=== PATIENT | male | born 1980 | race Caucasian/White ===

== ENCOUNTER 2018-05-26 06:50 | Observation (INO) | payer SELFPAY ==
[~2018-05-26] VITALS: Ht 180.3 cm; Wt 95.0 kg
--- OUTSIDE RECORDS SUMMARY | 2018-05-26 06:55 | XMS REPORT ---
Author Author COCO PHAM [facility] Address [address] [place] [address] Care Team Providers Care Lead Die Molder Name Role Phone COCO PHAM Unavailable PROBLEMS Type Condition ICD9-CM Code [id number] Code Onset Dates Condition Status SNOMED Code Problem Allergic rhinitis J30.9 Active 63534620 Problem GERD (gastroesophageal reflux disease) K21.9 Active 051064913 Problem Benign essential HTN I10 Active 2190115 Problem Tobacco use disorder F17.200 Active 756033495 Problem Other chronic pain G89.29 Active 23256157 Problem Low back pain M54.5 Active 415312504 Problem Tobacco abuse Z72.0 Active 45179864 Problem Pain in right hip M25.551 Active 36647267 Problem Pain in left hip M25.552 Active 13714361 ALLERGIES No Information ENCOUNTERS Encounter Location Date Diagnosis [facility] [address] [id number] [place] [id number] Jan, Benign essential HTN I10 and GERD (gastroesophageal reflux disease ) K21.9 [facility] [address] [facility] [address] [id number] [place] [id number] Dec, Benign essential HTN I10 [facility] [address] [facility] [address] [id number] [place] [id number] Dec, [facility] [address] [id number] [address] Dec, [facility] [address] [facility] [address] [id number] [place] [address] Dec, Benign essential HTN I10 ; Palpitations R00.2 ; Bronchitis J40 ; Tobacco use Z72.0 and Tobacco use disorder F17.200 [facility] [address] [id number], [place] [address] Oct, [facility] [id number] [place] [address] Jul, Benign essential HTN I10 ; Tobacco abuse Z72.0 ; Screening cholesterol level Z13.220 and Gastroesophageal reflux disease without esophagitis K21.9 [facility] [address] [id number] [place] [address] Jun, Benign essential HTN I10 ; GERD (gastroesophageal reflux disease) K21.9 and Tobacco abuse Z72.0 [facility] [address] [place] [address] AVE [id number] [place] [address] Nov, [facility] [address] [place] [address] AVE [id number] [place] [id number] Oct, [facility] [address] [facility] [id number] [address] Oct, Pain in left hip M25.552 ; Pain in right hip M25.551 ; Low back pain M54.5 and Other chronic pain G89.29 [facility] [id number] [place] [address] Oct, [facility] [address] [place] [address] AVE [id number] [place] [address] Oct, Pain in left hip M25.552 ; Pain in right hip M25.551 ; Low back pain M54.5 and Other chronic pain G89.29 [facility] [address] [id number], [place] [address] Sep, Dental examination Z01.20 [facility] [id number] [place] [address] Sep, Sore throat J02.9 and Common cold J00 [facility] [id number] [place] [address] Jul, Neck muscle strain, initial encounter S16.1XXA [facility] [id number] [place] [address] Jun, Tobacco abuse Z72.0 ; Tobacco abuse counseling Z71.6 ; Screening cholesterol level Z13.220 ; Benign essential HTN I10 and Gastroesophageal reflux disease without esophagitis K21.9 [facility] [address] [place] [address] [id number] [place] [address] Jun, Tobacco abuse Z72.[address] [id number] [place] [id number] May, [address] [id number] [place] [address] February, Upper respiratory tract infection, unspecified type J06.9 and Post -nasal drip R09.[address] [id number] [place] [address] Jan, Benign essential HTN I10 ; GERD (gastroesophageal reflux disease) K21.9 ; Tobacco abuse Z72.0 ; Tobacco abuse counseling Z71.6 ; Nocturia R35.1 and Allergic rhinitis J30.9 [facility] [address] [place] [address] Jan, [id number] [place] [address] Jan, [id number] [place] [address] Oct, [id number] [place] [address] Oct, IMMUNIZATIONS No Known Immunizations SOCIAL HISTORY Never Assessed REASON FOR VISIT PLAN OF CARE VITAL SIGNS MEDICATIONS Unknown Medications RESULTS No Results PROCEDURES No Known procedures INSTRUCTIONS MEDICATIONS ADMINISTERED No Known Medications MEDICAL (GENERAL) HISTORY Type Description Date Medical History hypertension Medical History acid reflux Medical History Bilateral Hip xrays 10/2016- Normal Medical History Lumbar Spine Xray 10/2016- Normal
--- OUTSIDE RECORDS SUMMARY | 2018-05-26 06:55 | XMS REPORT ---
Author Author COCO HPAM [facility] Address [address] [place] [address] Care Team Providers Care Medicaid Service Coordinator Name Role Phone COCO PHAM Unavailable PROBLEMS Type Condition ICD9-CM Code ARM39-RQ Code Onset Dates Condition Status SNOMED Code Problem Allergic rhinitis J30.9 Active 65024950 Problem GERD (gastroesophageal reflux disease) K21.9 Active 899974503 Problem Benign essential HTN I10 Active 9108889 Problem Tobacco use disorder F17.200 Active 618476445 Problem Other chronic pain G89.29 Active 94852979 Problem Low back pain M54.5 Active 655132088 Problem Tobacco abuse Z72.0 Active 80705015 Problem Pain in right hip M25.551 Active 85218162 Problem Pain in left hip M25.552 Active 97979437 ALLERGIES No Known Allergies ENCOUNTERS Encounter Location Date Diagnosis [facility] [address] [facility] [address] [id number], [place] [id number] Jan, Benign essential HTN I10 and GERD (gastroesophageal reflux disease ) K21.9 [facility] [address] [address] [id number], [place] [id number] Dec, Benign essential HTN I10 [facility] [address] [address] [id number], [place] [id number] Dec, [facility] [address] [id number] [address] Dec, [facility] [address] [facility] [id number], [place] [address] Dec, Benign essential HTN I10 ; Palpitations R00.2 ; Bronchitis J40 ; Tobacco use Z72.0 and Tobacco use disorder F17.200 [facility] [address]00565100[place], [place] [address] Oct, [facility] [address] [id number], [place] [address] Jul, Benign essential HTN I10 ; Tobacco abuse Z72.0 ; Screening cholesterol level Z13.220 and Gastroesophageal reflux disease without esophagitis K21.9 [facility] [address] [facility] [id number], [place] [id number] Jun, Benign essential HTN I10 ; GERD (gastroesophageal reflux disease) K21.9 and Tobacco abuse Z72.0 [facility] [address] [id number], [place] [address] Nov, [facility] [id number], [place] [address]80[address] Oct, [facility] [address] [facility] [id number] [address] Oct, Pain in left hip M25.552 ; Pain in right hip M25.551 ; Low back pain M54.5 and Other chronic pain G89.29 [facility] [address] [id number], [place] [id number] Oct, [facility] [id number], [place] [address] Oct, Pain in left hip M25.552 ; Pain in right hip M25.551 ; Low back pain M54.5 and Other chronic pain G89.29 [facility] [address] [facility] [id number][place] [address] Sep, Dental examination Z01.20 [facility] [address] [id number], [place] [address] Sep, Sore throat J02.9 and Common cold J00 [facility] [address] [id number], [place] [id number] Jul, Neck muscle strain, initial encounter S16.1XXA [facility] [id number], [place] [address] Jun, Tobacco abuse Z72.0 ; Tobacco abuse counseling Z71.6 ; Screening cholesterol level Z13.220 ; Benign essential HTN I10 and Gastroesophageal reflux disease without esophagitis K21.9 [facility] [id number], [place] [address] Jun, Tobacco abuse Z72.[address] [id number], [place] [id number] May, [address] [id number], [place] [address] February, Upper respiratory tract infection, unspecified type J06.9 and Post -nasal drip R09.[address] [id number], [place] [address]57[address]72 Jan, Benign essential HTN I10 ; GERD (gastroesophageal reflux disease) K21.9 ; Tobacco abuse Z72.0 ; Tobacco abuse counseling Z71.6 ; Nocturia R35.1 and Allergic rhinitis J30.9 [facility] [address] [place] [address] Jan, [id number] [place] [address]- [address]856 Jan, [id number] [place] [address]- 5542 Oct, [id number] [place] [address]- 1185 Oct, IMMUNIZATIONS No Known Immunizations SOCIAL HISTORY Never Assessed REASON FOR VISIT blood pressure follow up-Aletha rowe PLAN OF CARE Activity Details Follow Up 6 Months Reason:BP/fasting labs VITAL SIGNS Height 71 in 2018-01-28 Weight 211.3 lbs 2018-01-28 Temperature 98.6 degrees Fahrenheit 2018-01-28 Heart Rate 86 bpm 2018-01-28 Respiratory Rate 18 2018-01-28 BMI 29.47 kg/m2 2018-01-28 Blood pressure systolic 110 mmHg 2018-01-28 Blood pressure diastolic 60 mmHg 2018-01-28 MEDICATIONS Medication Instructions Dosage Frequency Start Date End Date Duration Status Atenolol 25 MG Orally Once a day 1 tablet 24h Dec, Active ProAir HFA 108 (90 Base) MCG/ACT Inhalation every 6 hrs 2 puffs as needed 6h Dec, Not-Taking Omeprazole 20 mg Orally Once a day 1 capsule 24h Active Losartan Potassium 100 mg Orally Once a day 1 tablet 24h Active Terazosin HCl 2 MG Orally Once a day 1 capsule Once a day Orally 24h Active RESULTS No Results PROCEDURES No Known procedures INSTRUCTIONS MEDICATIONS ADMINISTERED No Known Medications MEDICAL (GENERAL) HISTORY Type Description Date Medical History hypertension Medical History acid reflux Medical History Bilateral Hip xrays 10/2016- Normal Medical History Lumbar Spine Xray 10/2016- Normal
--- OUTSIDE RECORDS SUMMARY | 2018-05-26 06:55 | XMS REPORT ---
Author Author COCO PHAM [facility] Address [address] [place] [address] Care Team Providers Care Deputy Brand Inspector Name Role Phone COCO PHAM Unavailable PROBLEMS Type Condition ICD9-CM Code HBZ71-XX Code Onset Dates Condition Status SNOMED Code Problem Allergic rhinitis J30.9 Active 97434935 Problem GERD (gastroesophageal reflux disease) K21.9 Active 649208817 Problem Benign essential HTN I10 Active 9998575 Problem Tobacco use disorder F17.200 Active 907426546 Problem Other chronic pain G89.29 Active 20520131 Problem Low back pain M54.5 Active 705015078 Problem Tobacco abuse Z72.0 Active 19979322 Problem Pain in right hip M25.551 Active 16271024 Problem Pain in left hip M25.552 Active 44216382 ALLERGIES No Information ENCOUNTERS Encounter Location Date Diagnosis [facility] [address] [id number][place] [id number] Jan, Benign essential HTN I10 and GERD (gastroesophageal reflux disease ) K21.9 [facility] [address] [facility] [address] [id number], [place] [id number] Dec, Benign essential HTN I10 [facility] [address] [facility] [address] [id number], [place] [id number] Dec, [facility] [address] [id number], [place] [address] Dec, [facility] [address] [facility] [address] [id number], [place] [id number] Dec, Benign essential HTN I10 ; Palpitations R00.2 ; Bronchitis J40 ; Tobacco use Z72.0 and Tobacco use disorder F17.200 [facility] [address] [id number] [address] Oct, [facility] [address] [facility] [id number], [place] [address] Jul, Benign essential HTN I10 ; Tobacco abuse Z72.0 ; Screening cholesterol level Z13.220 and Gastroesophageal reflux disease without esophagitis K21.9 [facility] [id number], [place] [address] Jun, Benign essential HTN I10 ; GERD (gastroesophageal reflux disease) K21.9 and Tobacco abuse Z72.0 [facility] [address] [place] [address] AVE [id number], [place] [id number] Nov, [facility] [address] [place] [address] AVE [id number], [place] [id number] Oct, [facility] [address] [facility] [id number] [address] Oct, Pain in left hip M25.552 ; Pain in right hip M25.551 ; Low back pain M54.5 and Other chronic pain G89.29 [facility] [id number], [place] [id number] Oct, [facility] [address] [place] [address] AVE [id number], [place] [id number] Oct, Pain in left hip M25.552 ; Pain in right hip M25.551 ; Low back pain M54.5 and Other chronic pain G89.29 [facility] [address] [id number], [place] [id number] Sep, Dental examination Z01.20 [facility] [id number], [place] [address]69[address] Sep, Sore throat J02.9 and Common cold J00 [facility] [id number], [place] [address] Jul, Neck muscle strain, initial encounter S16.1XXA [facility] [id number], [place] [id number] Jun, Tobacco abuse Z72.0 ; Tobacco abuse counseling Z71.6 ; Screening cholesterol level Z13.220 ; Benign essential HTN I10 and Gastroesophageal reflux disease without esophagitis K21.9 [facility] [address] [place] [address] [id number], [place] [address] Jun, Tobacco abuse Z72.[address] [id number], [place] [id number] May, [address] [id number], [place] 358[address]13[address] February, Upper respiratory tract infection, unspecified type J06.9 and Post -nasal drip R09.[address] [id number], [place] [address]43 Jan, Benign essential HTN I10 ; GERD (gastroesophageal reflux disease) K21.9 ; Tobacco abuse Z72.0 ; Tobacco abuse counseling Z71.6 ; Nocturia R35.1 and Allergic rhinitis J30.9 [facility] [address] [place] [address]- [address] Jan, [id number] [place] [address] Jan, [facility] [id number] [place] [address]84- 4097 Oct, [id number] [place] [address] Oct, IMMUNIZATIONS No Known Immunizations SOCIAL HISTORY Never Assessed REASON FOR VISIT Blood pressure check PLAN OF CARE VITAL SIGNS Height 71 in 2018-01-11 Blood pressure systolic 130 mmHg 2018-01-11 Blood pressure diastolic 82 mmHg 2018-01-11 MEDICATIONS Unknown Medications RESULTS No Results PROCEDURES No Known procedures INSTRUCTIONS MEDICATIONS ADMINISTERED No Known Medications MEDICAL (GENERAL) HISTORY Type Description Date Medical History hypertension Medical History acid reflux Medical History Bilateral Hip xrays 10/2016- Normal Medical History Lumbar Spine Xray 10/2016- Normal
--- OUTSIDE RECORDS SUMMARY | 2018-05-26 06:55 | XMS REPORT ---
Author Author COCO PHAM Organization [facility] Address [address] [place] [address] Care Team Providers Care Oracle Webcenter Consultant Name Role Phone COCO PHAM Unavailable PROBLEMS Type Condition ICD9-CM Code CGW75-LC Code Onset Dates Condition Status SNOMED Code Problem Benign essential HTN I10 Active 4024457 Problem Allergic rhinitis J30.9 Active 43399964 Problem Other chronic pain G89.29 Active 19392951 Problem Pain in right hip M25.551 Active 72485734 Problem Tobacco abuse Z72.0 Active 27429340 Problem GERD (gastroesophageal reflux disease) K21.9 Active 331097974 Problem Pain in left hip M25.552 Active 52945127 Problem Low back pain M54.5 Active 512059789 ALLERGIES Substance Reaction Event Type Date Status N.K.D.A. Unknown Non Drug Allergy Oct, Unknown SOCIAL HISTORY No smoking Hx information available PLAN OF CARE Activity Details Follow Up prn Reason:referring to Reji miramontes VITAL SIGNS Height 71 in 2016-10-24 Weight 212.7 lbs 2016-10-24 Temperature 98.2 degrees Fahrenheit 2016-10-24 Heart Rate 78 bpm 2016-10-24 Respiratory Rate 18 2016-10-24 BMI 29.66 kg/m2 2016-10-24 Blood pressure systolic 134 mmHg 2016-10-24 Blood pressure diastolic 78 mmHg 2016-10-24 MEDICATIONS Medication Instructions Dosage Frequency Start Date End Date Duration Status Omeprazole 20 mg Orally Once a day 1 capsules 24h Jan, Active Terazosin HCl 2 MG Orally Once a day 1 capsule 24h Active Losartan Potassium 100 MG Orally Once a day 1 tablet 24h Active PredniSONE 20 mg Orally Once a day 2 tablet 24h Oct, Oct, 05 days Active RESULTS No Results PROCEDURES Procedure Date Ordered Related Diagnosis Body Site Office Visit, Est Pt., Level 3 Oct 24, 2016 IMMUNIZATIONS No Known Immunizations
--- OUTSIDE RECORDS SUMMARY | 2018-05-26 06:55 | XMS REPORT ---
Author Author COCO PHAM [facility] Address [address] [place] [address] Care Team Providers Care Department Director Name Role Phone COCO PHAM Unavailable PROBLEMS Type Condition ICD9-CM Code GCM85-YL Code Onset Dates Condition Status SNOMED Code Problem Allergic rhinitis J30.9 Active 53971342 Problem GERD (gastroesophageal reflux disease) K21.9 Active 680223779 Problem Benign essential HTN I10 Active 4308091 Problem Tobacco use disorder F17.200 Active 792103253 Problem Other chronic pain G89.29 Active 17929296 Problem Low back pain M54.5 Active 579204690 Problem Tobacco abuse Z72.0 Active 17208386 Problem Pain in right hip M25.551 Active 22511398 Problem Pain in left hip M25.552 Active 51894829 ALLERGIES No Information ENCOUNTERS Encounter Location Date Diagnosis [facility] [address] [address] [id number], [place] [id number] Jan, Benign essential HTN I10 and GERD (gastroesophageal reflux disease ) K21.9 [facility] [address] [facility] [address] [id number], [place] [id number] Dec, Benign essential HTN I10 [facility] [address] [facility] [facility] [address] [id number], [place] [id number] Dec, [facility] [address] [id number] [address] Dec, [facility] [address] [facility] [facility] [address] [id number], [place] [id number] Dec, Benign essential HTN I10 ; Palpitations R00.2 ; Bronchitis J40 ; Tobacco use Z72.0 and Tobacco use disorder F17.200 [facility] [address] [id number] [address]46 Oct, [facility] [address] [facility] [id number], [place] [address] Jul, Benign essential HTN I10 ; Tobacco abuse Z72.0 ; Screening cholesterol level Z13.220 and Gastroesophageal reflux disease without esophagitis K21.9 [facility] [address] [id number], [place] [address] Jun, Benign essential HTN I10 ; GERD (gastroesophageal reflux disease) K21.9 and Tobacco abuse Z72.0 [facility] [address] [place] [address] AVE [id number], [place] [id number] Nov, [facility] [address] [place] [address] AVE [id number], [place] [address] Oct, [facility] [address] [facility] [id number], [place] [address] Oct, Pain in left hip M25.552 ; Pain in right hip M25.551 ; Low back pain M54.5 and Other chronic pain G89.29 [facility] [address] [id number], [place] [address] Oct, [facility] [address] [place] [address] AVE [id number], [place] [id number] Oct, Pain in left hip M25.552 ; Pain in right hip M25.551 ; Low back pain M54.5 and Other chronic pain G89.29 [facility] [address] [id number], [place] [id number] Sep, Dental examination Z01.20 [facility] [address] [id number], [place] 511355787 Sep, Sore throat J02.9 and Common cold J00 [facility] [address] [id number], [place] [address] Jul, Neck muscle strain, initial encounter S16.1XXA [facility] [address] [id number], [place] [id number] Jun, Tobacco abuse Z72.0 ; Tobacco abuse counseling Z71.6 ; Screening cholesterol level Z13.220 ; Benign essential HTN I10 and Gastroesophageal reflux disease without esophagitis K21.9 [facility] [address] [place] [address] [id number], [place] [id number] Jun, Tobacco abuse Z72.[address] [id number], [place] [id number] May, [address] [id number], [place] 29[address] February, Upper respiratory tract infection, unspecified type J06.9 and Post -nasal drip R09.[address] [id number], [place] [address] Jan, Benign essential HTN I10 ; GERD (gastroesophageal reflux disease) K21.9 ; Tobacco abuse Z72.0 ; Tobacco abuse counseling Z71.6 ; Nocturia R35.1 and Allergic rhinitis J30.9 [facility] [address] [place] [address]- 9360 Jan, [id number] [place] [address]- 7130 Jan, [place] [id number] [place] [address]- 6681 Oct, [id number] [place] [address]- [address] Oct, IMMUNIZATIONS No Known Immunizations SOCIAL HISTORY [...]
--- OUTSIDE RECORDS SUMMARY | 2018-05-26 06:55 | XMS REPORT ---
Author Author COCO PHAM [facility] Address [address] [place] [address] Care Team Providers Care Cupola Melting Supervisor Name Role Phone COCO PHAM Unavailable PROBLEMS Type Condition ICD9-CM Code [id number] Code Onset Dates Condition Status SNOMED Code Problem Allergic rhinitis J30.9 Active 71864351 Problem GERD (gastroesophageal reflux disease) K21.9 Active 173984112 Problem Benign essential HTN I10 Active 9005776 Problem Tobacco use disorder F17.200 Active 107219448 Problem Other chronic pain G89.29 Active 32613815 Problem Low back pain M54.5 Active 193881348 Problem Tobacco abuse Z72.0 Active 68478062 Problem Pain in right hip M25.551 Active 30806761 Problem Pain in left hip M25.552 Active 86254241 ALLERGIES No Known Allergies ENCOUNTERS Encounter Location Date Diagnosis [facility] [address] [id number] [place] [id number] Jan, Benign essential HTN I10 and GERD (gastroesophageal reflux disease ) K21.9 [facility] [address] [id number] [place] [id number] Dec, Benign essential HTN I10 [facility] [address] [id number] [place] [id number] Dec, [facility] [address] [id number] [id number] Dec, [facility] [address] [facility] [id number] [place] [id number] Dec, Benign essential HTN I10 ; Palpitations R00.2 ; Bronchitis J40 ; Tobacco use Z72.0 and Tobacco use disorder F17.200 [facility] [address]00565100[place], [place] [address] Oct, [facility] [address] [id number] [place] [address] Jul, Benign essential HTN I10 ; Tobacco abuse Z72.0 ; Screening cholesterol level Z13.220 and Gastroesophageal reflux disease without esophagitis K21.[address] [id number] [place] [address] Jun, Benign essential HTN I10 ; GERD (gastroesophageal reflux disease) K21.9 and Tobacco abuse Z72.[address] [id number] [place] [id number] Nov, [facility] [address] [id number] [place] [id number] Oct, [facility] [address] [facility] [id number], [place] [address] Oct, Pain in left hip M25.552 ; Pain in right hip M25.551 ; Low back pain M54.5 and Other chronic pain G89.29 [facility] [address] [id number] [place] [address] Oct, [facility] [address] [id number] [place] [address] Oct, Pain in left hip M25.552 ; Pain in right hip M25.551 ; Low back pain M54.5 and Other chronic pain G89.29 [facility] [address] [facility] [id number], [place] [address] Sep, Dental examination Z01.[address] [id number] [place] [address] Sep, Sore throat J02.9 and Common cold J00 [facility] [id number] [place] [address] Jul, Neck muscle strain, initial encounter S16.1XXA [facility] [address] [id number] [place] [address] Jun, Tobacco abuse Z72.0 ; Tobacco abuse counseling Z71.6 ; Screening cholesterol level Z13.220 ; Benign essential HTN I10 and Gastroesophageal reflux disease without esophagitis K21.[address] [id number] [place] [address] Jun, Tobacco abuse Z72.[address] [id number] [place] [id number] May, [address] [id number] [place] [address] February, Upper respiratory tract infection, unspecified type J06.9 and Post -nasal drip R09.[address] [id number] [place] [address] Jan, Benign essential HTN I10 ; GERD (gastroesophageal reflux disease) K21.9 ; Tobacco abuse Z72.0 ; Tobacco abuse counseling Z71.6 ; Nocturia R35.1 and Allergic rhinitis J30.9 [address] [place] [address] Jan, [place] [address] [address] [address] Jan, [place] [address] [id number] [place] [address] Oct, [place] [id number] [place] [address] Oct, IMMUNIZATIONS Vaccine Route Administration Date Status SOLUMEDROL (UP TO 125 MG) IM Intramuscular December 28, 2017 Administered SOCIAL HISTORY Never Assessed REASON FOR VISIT cold symptoms started thursday, has cough and congestion adrian boykin PLAN OF CARE Activity Details Follow Up 4 Weeks Reason:palpitations VITAL SIGNS Height 71 in 2017-12-28 Weight 208.5 lbs 2017-12-28 Temperature 96.8 degrees Fahrenheit 2017-12-28 Heart Rate 80 bpm 2017-12-28 Respiratory Rate 18 2017-12-28 Oximetry 99 % 2017-12-28 BMI 29.08 kg/m2 2017-12-28 Blood pressure systolic 150 mmHg 2017-12-28 Blood pressure diastolic 96 mmHg 2017-12-28 MEDICATIONS Medication Instructions Dosage Frequency Start Date End Date Duration Status Atenolol 25 MG Orally Once a day 1 tablet 24h Dec, Active Losartan Potassium 100 MG 1 tablet Once a day Orally Active Omeprazole 20 MG TAKE ONE CAPSULE BY MOUTH ONCE DAILY. 90 Active Terazosin HCl 2 MG Orally Once a day 1 capsule Once a day Orally 24h Active ProAir HFA 108 (90 Base) MCG/ACT Inhalation every 6 hrs 2 puffs as needed 6h Dec, Active RESULTS No Results PROCEDURES Procedure Date Ordered Result Body Site NEBULIZER TREATMENT 2017-12-28 N/A EKG, TRACING (IN-HOUSE) 2017-12-28 see note SOLUMEDROL (UP TO 125 MG) December 28, 2017 ALBUTEROL INHAL UNIT DOSE 1 MG December 28, 2017 THER/PROPH/DIAG INJ, SC/IM December 28, 2017 ALBUTEROL UNIT DOSE FORM INHALED 2017-12-28 N/A NEB/MDI RX INITIAL December 28, 2017 ELECTROCARDIOGRAM, TRACING December 28, 2017 INSTRUCTIONS MEDICATIONS ADMINISTERED No Known Medications MEDICAL (GENERAL) HISTORY Type Description Date Medical History hypertension Medical History acid reflux Medical History Bilateral Hip xrays 10/2016- Normal Medical History Lumbar Spine Xray 10/2016- Normal
--- OUTSIDE RECORDS SUMMARY | 2018-05-26 06:56 | XMS REPORT ---
Author Author [facility] PHAM [facility] Address [address] [place] [address] Care Team Providers Care Well Digger Name Role Phone COCO PHAM Unavailable PROBLEMS Type Condition ICD9-CM Code BLL72-PY Code Onset Dates Condition Status SNOMED Code Problem Benign essential HTN I10 Active 9527080 Problem Allergic rhinitis J30.9 Active 24314773 Problem Other chronic pain G89.29 Active 96429765 Problem Pain in right hip M25.551 Active 01904230 Problem Tobacco abuse Z72.0 Active 38823182 Problem GERD (gastroesophageal reflux disease) K21.9 Active 384208699 Problem Pain in left hip M25.552 Active 60347913 Problem Low back pain M54.5 Active 096499003 ALLERGIES Unknown Allergies SOCIAL HISTORY No smoking Hx information available PLAN OF CARE VITAL SIGNS MEDICATIONS Unknown Medications RESULTS No Results PROCEDURES No Known procedures IMMUNIZATIONS No Known Immunizations
--- OUTSIDE RECORDS SUMMARY | 2018-05-26 06:56 | XMS REPORT ---
Author Author COCO PHAM [facility] Address [address] [place] [address] Care Team Providers Care Cash Grain Grower Name Role Phone COCO PHAM Unavailable PROBLEMS Type Condition ICD9-CM Code TPO77-CR Code Onset Dates Condition Status SNOMED Code Problem Allergic rhinitis J30.9 Active 70349925 Problem GERD (gastroesophageal reflux disease) K21.9 Active 136873026 Problem Benign essential HTN I10 Active 1649740 Problem Tobacco use disorder F17.200 Active 591724462 Problem Other chronic pain G89.29 Active 42126361 Problem Low back pain M54.5 Active 830926093 Problem Tobacco abuse Z72.0 Active 87015745 Problem Pain in right hip M25.551 Active 61012745 Problem Pain in left hip M25.552 Active 89583371 ALLERGIES No Known Allergies ENCOUNTERS Encounter Location Date Diagnosis [facility] [address] [facility] [address] [id number][place] [phone] Jan, Benign essential HTN I10 and GERD (gastroesophageal reflux disease ) K21.9 [facility] [address] [address] [id number], [place] [address] Dec, Benign essential HTN I10 [facility] [address] [facility] [address] [id number], [place] [id number] Dec, [facility] [address] [id number] [address] Dec, [facility] [address] [facility] [id number], [place] [address] Dec, Benign essential HTN I10 ; Palpitations R00.2 ; Bronchitis J40 ; Tobacco use Z72.0 and Tobacco use disorder F17.200 [facility] [address]00565100[place] [address] Oct, [facility] [address] [id number], [place] [address] Jul, Benign essential HTN I10 ; Tobacco abuse Z72.0 ; Screening cholesterol level Z13.220 and Gastroesophageal reflux disease without esophagitis K21.9 [facility] [address] [facility] [id number], [place] [address] Jun, Benign essential HTN I10 ; GERD (gastroesophageal reflux disease) K21.9 and Tobacco abuse Z72.0 [facility] [address] [id number], [place] [address] Nov, [facility] [address] [id number], [place] [address] Oct, [facility] [address] [facility] [id number] [address] Oct, Pain in left hip M25.552 ; Pain in right hip M25.551 ; Low back pain M54.5 and Other chronic pain G89.29 [facility] [address] [id number], [place] [address] Oct, [facility] [address] [id number], [place] [address] Oct, Pain in left hip M25.552 ; Pain in right hip M25.551 ; Low back pain M54.5 and Other chronic pain G89.29 [facility] [address] [facility] [id number], [place] [address] Sep, Dental examination Z01.20 [facility] [address] [id number], [place] [address] Sep, Sore throat J02.9 and Common cold J00 [facility] [address] [id number], [place] [address] Jul, Neck muscle strain, initial encounter S16.1XXA [facility] [address] [id number], [place] [address] Jun, Tobacco abuse Z72.0 ; Tobacco abuse counseling Z71.6 ; Screening cholesterol level Z13.220 ; Benign essential HTN I10 and Gastroesophageal reflux disease without esophagitis K21.9 [facility] [id number], [place] [address] Jun, Tobacco abuse Z72.[address] [id number], [place] [address] May, [address] [id number], [place] [address] February, Upper respiratory tract infection, unspecified type J06.9 and Post -nasal drip R09.[address] [id number], [place] [address] Jan, Benign essential HTN I10 ; GERD (gastroesophageal reflux disease) K21.9 ; Tobacco abuse Z72.0 ; Tobacco abuse counseling Z71.6 ; Nocturia R35.1 and Allergic rhinitis J30.9 [facility] [address] [place] [address] Jan, [id number] [place] [address] Jan, [facility] [id number] [place] [address] Oct, [facility] [id number] [place] [address] Oct, IMMUNIZATIONS No Known Immunizations SOCIAL HISTORY Never Assessed REASON FOR VISIT [facility] Activity Details Follow Up 1 Year Reason:BP/fasting labs ( fasting labs next week) VITAL SIGNS Height 71 in 2017-07-17 Weight 201 lbs 2017-07-17 Temperature 97.9 degrees Fahrenheit 2017-07-17 Heart Rate 78 bpm 2017-07-17 Respiratory Rate 18 2017-07-17 BMI 28.03 kg/m2 2017-07-17 Blood pressure systolic 136 mmHg 2017-07-17 Blood pressure diastolic 90 mmHg 2017-07-17 MEDICATIONS Medication Instructions Dosage Frequency Start Date End Date Duration Status Omeprazole 20 mg Orally Once a day 1 capsules 24h Jan, Active Terazosin HCl 2 MG 1 capsule Once a day Orally Active Losartan Potassium 100 MG 1 tablet Once a day Orally Active RESULTS No Results PROCEDURES No Known procedures INSTRUCTIONS MEDICATIONS ADMINISTERED No Known Medications MEDICAL (GENERAL) HISTORY Type Description Date Medical History hypertension Medical History acid reflux Medical History Bilateral Hip xrays 10/2016- Normal Medical History Lumbar Spine Xray 10/2016- Normal
--- OUTSIDE RECORDS SUMMARY | 2018-05-26 06:56 | XMS REPORT ---
Author Author COCO PHAM [facility] Address [address] [place] [address] Care Team Providers Care Research Fellow Name Role Phone COCO PHAM Unavailable PROBLEMS Type Condition ICD9-CM Code PAQ04-GP Code Onset Dates Condition Status SNOMED Code Problem Allergic rhinitis J30.9 Active 07781413 Problem GERD (gastroesophageal reflux disease) K21.9 Active 345329944 Problem Benign essential HTN I10 Active 5143828 Problem Tobacco use disorder F17.200 Active 561944744 Problem Other chronic pain G89.29 Active 17279865 Problem Low back pain M54.5 Active 726090257 Problem Tobacco abuse Z72.0 Active 60414692 Problem Pain in right hip M25.551 Active 88909404 Problem Pain in left hip M25.552 Active 75603157 ALLERGIES No Information ENCOUNTERS Encounter Location Date Diagnosis [facility] [address] [id number] [id number] Jan, Benign essential HTN I10 and GERD (gastroesophageal reflux disease ) K21.9 [facility] [address] [facility] [address] [id number], [place] [id number] Dec, Benign essential HTN I10 [facility] [address] [facility] [address] [id number], [place] [id number] Dec, [facility] [address] [id number], [place] [address] Dec, [facility] [address] [facility] [address] [id number], [place] [id number] Dec, Benign essential HTN I10 ; Palpitations R00.2 ; Bronchitis J40 ; Tobacco use Z72.0 and Tobacco use disorder F17.200 [facility] [address] [id number], [place] [address] Oct, [facility] [address] [id number], [place] [address] Jul, Benign essential HTN I10 ; Tobacco abuse Z72.0 ; Screening cholesterol level Z13.220 and Gastroesophageal reflux disease without esophagitis K21.9 [facility] [address] [id number], [place] [id number] Jun, Benign essential HTN I10 ; GERD (gastroesophageal reflux disease) K21.9 and Tobacco abuse Z72.0 [facility] [address] [place] [address] AVE [id number], [place] [id number] Nov, [facility] [address] [place] [address] AVE [id number], [place] [id number] Oct, [facility] [address] [facility] [id number], [place] [address] Oct, Pain in left hip M25.552 ; Pain in right hip M25.551 ; Low back pain M54.5 and Other chronic pain G89.29 [facility] [address] [id number], [place] [address] Oct, [facility] [address] [place] [address] AVE [id number], [place] [id number] Oct, Pain in left hip M25.552 ; Pain in right hip M25.551 ; Low back pain M54.5 and Other chronic pain G89.29 [facility] [address] [id number] [id number] Sep, Dental examination Z01.20 [facility] [address] [id number], [place] [address] Sep, Sore throat J02.9 and Common cold J00 [facility] [address] [id number], [place] [address] Jul, Neck muscle strain, initial encounter S16.1XXA [facility] [address] [id number], [place] [id number] Jun, Tobacco abuse Z72.0 ; Tobacco abuse counseling Z71.6 ; Screening cholesterol level Z13.220 ; Benign essential HTN I10 and Gastroesophageal reflux disease without esophagitis K21.9 [facility] [id number], [place] [address] Jun, Tobacco abuse Z72.[address] [id number], [place] [id number] May, [address] [id number], [place] [address] February, Upper respiratory tract infection, unspecified type J06.9 and Post -nasal drip R09.[address] [id number], [place] [address] Jan, Benign essential HTN I10 ; GERD (gastroesophageal reflux disease) K21.9 ; Tobacco abuse Z72.0 ; Tobacco abuse counseling Z71.6 ; Nocturia R35.1 and Allergic rhinitis J30.9 [facility] [address] [place] [address] Jan, [place] [address] [id number] [place] [address] Jan, [place] [address] [place] [address] Oct, [id number] [place] [phone] Oct, IMMUNIZATIONS No Known Immunizations SOCIAL HISTORY Never Assessed REASON FOR VISIT Refill request PLAN OF CARE VITAL SIGNS MEDICATIONS Medication Instructions Dosage Frequency Start Date End Date Duration Status Terazosin HCl 2 MG Orally Once a day 1 capsule Once a day Orally 24h 30 days Active RESULTS No Results PROCEDURES No Known procedures INSTRUCTIONS MEDICATIONS ADMINISTERED No Known Medications MEDICAL (GENERAL) HISTORY Type Description Date Medical History hypertension Medical History acid reflux Medical History Bilateral Hip xrays 10/2016- Normal Medical History Lumbar Spine Xray 10/2016- Normal
--- OUTSIDE RECORDS SUMMARY | 2018-05-26 06:56 | XMS REPORT ---
Author COCO Barton [facility] eClinicalWorks Address Unknown Phone Unavailable Care Team Providers Care Telegraph Dispatcher Name Role Phone COCO PHAM CP Unavailable Allergies, Adverse Reactions, Alerts Substance Reaction Event Type N.K.D.A. Info Not Available Non Drug Allergy Problems Problem Type Condition Code Onset Dates Condition Status Problem GERD (gastroesophageal reflux disease) K21.9 Active Problem Tobacco abuse Z72.0 Active Problem Benign essential HTN I10 Active Problem Allergic rhinitis J30.9 Active Assessment Neck muscle strain, initial encounter S16.1XXA Active Medications Medication Code System Code Instructions Start Date End Date Status Dosage Omeprazole [facility] [address]-06 20 mg Orally Once a day January 24, 2016 1 capsules Terazosin HCl [facility] 67881600469 2 MG Orally Once a day 1 capsule Cyclobenzaprine HCl [facility] [address]-21 10 mg Orally bedtime Aug 05, 2016 1 tablet Losartan Potassium [facility] [address]-33 100 MG Orally Once a day 1 tablet Procedures Procedure Coding System Code Date THER/PROPH/DIAG INJ, SC/IM CPT-4 52428 Aug 05, 2016 Office Visit, Est Pt., Level 3 CPT-4 12316 Aug 05, 2016 SOLUMEDROL (UP TO 125 MG) CPT-4 J2930 Aug 05, 2016 Vital Signs Date/Time: Aug 05, 2016 Cardiac Monitoring Heart Rate 72 bpm Weight 205.8 lbs Height 71 in BMI 28.70 Index Blood Pressure Diastolic 88 mmHg Blood Pressure Systolic 132 mmHg Results No Known Results Summary Purpose eClinicalWorks Submission
--- OUTSIDE RECORDS SUMMARY | 2018-05-26 06:56 | XMS REPORT ---
Author Author MARCIANO DURBIN [facility] Address [address] [place] [address] Care Team Providers Care Disc Jockey Name Role Phone ALEJAMARCIANO GIPSON Unavailable PROBLEMS Type Condition ICD9-CM Code VCI07-NH Code Onset Dates Condition Status SNOMED Code Problem Benign essential HTN I10 Active 7342859 Problem GERD (gastroesophageal reflux disease) K21.9 Active 060322248 Assessment Sore throat J02.9 Sep, Active 592491930 Assessment Common cold J00 Sep, Active 92949980 Problem Tobacco abuse Z72.0 Active 56136135 Problem Allergic rhinitis J30.9 Active 52800370 ALLERGIES Substance Reaction Event Type Date Status N.K.D.A. Unknown Non Drug Allergy Sep, Unknown SOCIAL HISTORY No smoking Hx information available PLAN OF CARE Activity Details Pending Test STREP A (IN HOUSE) prn,Reason: VITAL SIGNS Height 71 in 2016-09-29 Weight 217.6 lbs 2016-09-29 Heart Rate 96 bpm 2016-09-29 Respiratory Rate 16 2016-09-29 BMI 30.35 kg/m2 2016-09-29 Blood pressure systolic 130 mmHg 2016-09-29 Blood pressure diastolic 80 mmHg 2016-09-29 MEDICATIONS Medication Instructions Dosage Frequency Start Date End Date Duration Status Cyclobenzaprine HCl 10 mg Orally bedtime 1 tablet Jul, Active Terazosin HCl 2 MG Orally Once a day 1 capsule 24h Active Omeprazole 20 mg Orally Once a day 1 capsules 24h Jan, Active Losartan Potassium 100 MG Orally Once a day 1 tablet 24h Active RESULTS Name Result Date Reference Range STREP A (IN HOUSE) 2016-09-29 STREP A neg Control pos Lot # [id number] Exp date 07/06 PROCEDURES Procedure Date Ordered Related Diagnosis Body Site STREP A ASSAY W/OPTIC Sep 29, 2016 Office Visit, Est Pt., Level 3 Sep 29, 2016 THER/PROPH/DIAG INJ, SC/IM Sep 29, 2016 SOLUMEDROL (UP TO 125 MG) Sep 29, 2016 IMMUNIZATIONS Vaccine Route Administration Date Status SOLUMEDROL (UP TO 125 MG) IM Intramuscular Sep 29, 2016 Administered
--- OUTSIDE RECORDS SUMMARY | 2018-05-26 06:56 | XMS REPORT ---
Author COCO Barton eClinicalWorks Address Unknown Phone Unavailable Care Team Providers Care Call Circuit Worker Name Role Phone COCO PHAM CP Unavailable Allergies, Adverse Reactions, Alerts Substance Reaction Event Type N.K.D.A. Info Not Available Non Drug Allergy Problems Problem Type Condition Code Onset Dates Condition Status Assessment Tobacco abuse Z72.0 Active Assessment Benign essential HTN I10 Active Assessment GERD (gastroesophageal reflux disease) K21.9 Active Problem GERD (gastroesophageal reflux disease) K21.9 Active Problem Tobacco abuse Z72.0 Active Problem Benign essential HTN I10 Active Problem Fever, unspecified 780.60 Active Problem Influenza with other respiratory manifestations 487.1 Active Problem Allergic rhinitis J30.9 Active Problem Throat pain 784.1 Active Assessment Allergic rhinitis J30.9 Active Assessment Nocturia R35.1 Active Assessment Tobacco abuse counseling Z71.6 Active Medications Medication Code System Code Instructions Start Date End Date Status Dosage Cetirizine HCl [facility] [address]-03 10 mg Orally Once a day January 24, 2016 1 tablet Losartan Potassium [facility] [address]-62 100 MG Orally Once a day 1 tablet Terazosin HCl [facility] [address]-02 2 MG Orally Once a day January 24, 2016 1 capsule Nicorette [facility] [address]-98 2 MG Mouth/Throat dont exceed 24 pieces in a day January 24, 2016 1 piece as needed Omeprazole [facility] [address]-44 20 mg Orally Once a day January 24, 2016 1 capsules Procedures Procedure Coding System Code Date COMPREHEN METABOLIC PANEL CPT-4 56690 January 24, 2016 ASSAY OF PSA, TOTAL CPT-4 53231 January 24, 2016 MICROALBUMIN, SEMIQUANT CPT-4 75259 January 24, 2016 URINALYSIS, AUTO, W/O SCOPE CPT-4 76589 January 24, 2016 ELECTROCARDIOGRAM, TRACING CPT-4 82231 January 24, 2016 ASSAY OF PSA, FREE CPT-4 65075 January 24, 2016 VENIPUNCT, ROUTINE* CPT-4 37479 January 24, 2016 Office Visit, New Pt., Level 4 CPT-4 25934 January 24, 2016 Vital Signs Date/Time: January 24, 2016 Cardiac Monitoring Heart Rate 82 bpm Weight 207.5 lbs Height 71 in Blood Pressure Diastolic 98 mmHg Blood Pressure Systolic 150 mmHg Results No Known Results Summary Purpose eClinicalWorks Submission
--- OUTSIDE RECORDS SUMMARY | 2018-05-26 06:56 | XMS REPORT ---
Author Author COCO PHAM [facility] Address [address] [place] [address] Care Team Providers Care Business Transformation Consultant Name Role Phone COCO PHAM Unavailable PROBLEMS Type Condition ICD9-CM Code [id number] Code Onset Dates Condition Status SNOMED Code Problem Allergic rhinitis J30.9 Active 03398101 Problem GERD (gastroesophageal reflux disease) K21.9 Active 024920048 Problem Benign essential HTN I10 Active 8742390 Problem Tobacco use disorder F17.200 Active 646478538 Problem Other chronic pain G89.29 Active 65639105 Problem Low back pain M54.5 Active 613388958 Problem Tobacco abuse Z72.0 Active 23862828 Problem Pain in right hip M25.551 Active 06659727 Problem Pain in left hip M25.552 Active 59169381 ALLERGIES No Information ENCOUNTERS Encounter Location Date Diagnosis [facility] [address] [address] [id number][place] [id number] Jan, Benign essential HTN I10 and GERD (gastroesophageal reflux disease ) K21.9 [facility] [address] [id number][place] [id number] Dec, Benign essential HTN I10 [facility] [address] [id number][place] [id number] Dec, [facility] [place] [address] [id number] [address] Dec, [facility] [address] [id number][place] [id number] Dec, Benign essential HTN I10 ; Palpitations R00.2 ; Bronchitis J40 ; Tobacco use Z72.0 and Tobacco use disorder F17.200 [facility] [place] [address] [id number], [place] [address] Oct, [facility] [address] [id number][place] [id number] Jul, Benign essential HTN I10 ; Tobacco abuse Z72.0 ; Screening cholesterol level Z13.220 and Gastroesophageal reflux disease without esophagitis K21.9 [facility] [address] [id number][place] [id number] Jun, Benign essential HTN I10 ; GERD (gastroesophageal reflux disease) K21.9 and Tobacco abuse Z72.0 [facility] [address] [place] [address] AVE [id number][place] [id number] Nov, [facility] [address] [place] [address] AVE [id number][place] [id number] Oct, [facility] [address] [facility] [id number], [place] [address] Oct, Pain in left hip M25.552 ; Pain in right hip M25.551 ; Low back pain M54.5 and Other chronic pain G89.29 [facility] [address] [id number][place] [id number] Oct, [facility] [address] [place] [address] AVE [id number][place] [id number] Oct, Pain in left hip M25.552 ; Pain in right hip M25.551 ; Low back pain M54.5 and Other chronic pain G89.29 [facility] [address] [id number] [id number] Sep, Dental examination Z01.20 [facility] [address] [id number][place] [id number] Sep, Sore throat J02.9 and Common cold J00 [facility] [address] [id number][place] [id number] Jul, Neck muscle strain, initial encounter S16.1XXA [facility] [address] [id number][place] [id number] Jun, Tobacco abuse Z72.0 ; Tobacco abuse counseling Z71.6 ; Screening cholesterol level Z13.220 ; Benign essential HTN I10 and Gastroesophageal reflux disease without esophagitis K21.9 [facility] [address] [place] [address] [id number] [id number] Jun, Tobacco abuse Z72.[address] [id number], [place] [id number] May, [address] [id number], [place] [id number] February, Upper respiratory tract infection, unspecified type J06.9 and Post -nasal drip R09.[address] [id number], [place] [id number] Jan, Benign essential HTN I10 ; GERD (gastroesophageal reflux disease) K21.9 ; Tobacco abuse Z72.0 ; Tobacco abuse counseling Z71.6 ; Nocturia R35.1 and Allergic rhinitis J30.9 [facility] [place] [address] [place], [place] [address] Jan, [id number] [place], [place] [address] Jan, [facility] [place] [id number] [place], [place] [id number] Oct, [facility] [place] [id number] [place], [place] [address] Oct, IMMUNIZATIONS No Known Immunizations SOCIAL HISTORY Never Assessed REASON FOR VISIT Lab (walk-in) Geeta [facility] PLAN OF CARE VITAL SIGNS MEDICATIONS Unknown Medications RESULTS No Results PROCEDURES Procedure Date Ordered Result Body Site ASSAY THYROID STIM HORMONE Jul 24, 2017 LIPID PANEL Jul 24, 2017 COMPREHEN METABOLIC PANEL Jul 24, 2017 COMPLETE CBC W/AUTO DIFF WBC Jul 24, 2017 VENIPUNCT, ROUTINE* Jul 24, 2017 INSTRUCTIONS MEDICATIONS ADMINISTERED No Known Medications MEDICAL (GENERAL) HISTORY Type Description Date Medical History hypertension Medical History acid reflux Medical History Bilateral Hip xrays 10/2016- Normal Medical History Lumbar Spine Xray 10/2016- Normal
--- OUTSIDE RECORDS SUMMARY | 2018-05-26 06:56 | XMS REPORT ---
Author Author GODFREY NEVAREZ [facility] Address Unknown Care Team Providers Care Rn Er Name Role Phone GODFREY NEVAREZ Unavailable PROBLEMS Type Condition ICD9-CM Code [id number] Code Onset Dates Condition Status SNOMED Code Problem Benign essential HTN I10 Active 2201842 Problem Allergic rhinitis J30.9 Active 41590183 Problem Other chronic pain G89.29 Active 46132802 Problem Pain in right hip M25.551 Active 84042812 Problem Tobacco abuse Z72.0 Active 79441975 Problem GERD (gastroesophageal reflux disease) K21.9 Active 115190715 Problem Pain in left hip M25.552 Active 14765667 Problem Low back pain M54.5 Active 026535418 ALLERGIES Substance Reaction Event Type Date Status N.K.D.A. Unknown Non Drug Allergy Sep, Unknown SOCIAL HISTORY No smoking Hx information available PLAN OF CARE Activity Details Follow Up prn Reason:1 hr fillings VITAL SIGNS Height 71 in 2016-10-17 Blood pressure systolic 139 mmHg 2016-10-17 Blood pressure diastolic 102 mmHg 2016-10-17 MEDICATIONS Medication Instructions Dosage Frequency Start Date End Date Duration Status Losartan Potassium 100 MG Orally Once a day 1 tablet 24h Active Cyclobenzaprine HCl 10 mg Orally bedtime 1 tablet Jul, Active RESULTS No Results PROCEDURES Procedure Date Ordered Related Diagnosis Body Site COMP ORAL EVALUATION - NEW/EST PT Oct 17, 2016 INTRAORL-PERIAPICAL 1 FILM 74637 Oct 17, 2016 RESIN COMPOS - 1 SURFACE POSTERIOR Oct 17, 2016 PANORAMIC FILM SEE ALSO CODE 38247 Oct 17, 2016 RESIN COMPOS - 1 SURFACE POSTERIOR Oct 17, 2016 BITEWING - SINGLE FILM Oct 17, 2016 INTRAORL-PERIAPICAL EA ADD FILM Oct 17, 2016 BITEWINGS - TWO FILMS Oct 17, 2016 BITEWING - SINGLE FILM Oct 17, 2016 IMMUNIZATIONS No Known Immunizations
--- OUTSIDE RECORDS SUMMARY | 2018-05-26 06:56 | XMS REPORT ---
Author [facility] Address [address] [place] [address] Care Team Providers Care Hot Top Liner Name Role Phone COCO PHAM Unavailable PROBLEMS Type Condition ICD9-CM Code [id number]-GA Code Onset Dates Condition Status SNOMED Code Problem Benign essential HTN I10 Active 4446393 Problem Allergic rhinitis J30.9 Active 08766223 Problem Other chronic pain G89.29 Active 16728445 Problem Pain in right hip M25.551 Active 09139144 Problem Tobacco abuse Z72.0 Active 30561620 Problem GERD (gastroesophageal reflux disease) K21.9 Active 271526774 Problem Pain in left hip M25.552 Active 76353282 Problem Low back pain M54.5 Active 288671871 ALLERGIES No Information SOCIAL HISTORY Never Assessed PLAN OF CARE VITAL SIGNS MEDICATIONS Unknown Medications RESULTS No Results PROCEDURES No Known procedures IMMUNIZATIONS No Known Immunizations MEDICAL (GENERAL) HISTORY Type Description Date Medical History hypertension Medical History acid reflux Medical History Bilateral Hip xrays 10/2016- Normal Medical History Lumbar Spine Xray 10/2016- Normal
--- OUTSIDE RECORDS SUMMARY | 2018-05-26 06:56 | XMS REPORT ---
Author Author VIRGEN WATTERS [facility] Address Unknown Phone Unavailable Care Team Providers Care Crutch Maker Name Role Phone VIRGEN WATTERS Unavailable Unavailable PROBLEMS Type Condition ICD9-CM Code [id number] Code Onset Dates Condition Status SNOMED Code Problem Benign essential HTN I10 Active 2511080 Problem GERD (gastroesophageal reflux disease) K21.9 Active 233770683 Assessment Tobacco abuse Z72.0 Jun, Active 046669696 Problem Tobacco abuse Z72.0 Active 29366575 Problem Allergic rhinitis J30.9 Active 32424127 ALLERGIES Unknown Allergies SOCIAL HISTORY No smoking Hx information available PLAN OF CARE VITAL SIGNS MEDICATIONS Unknown Medications RESULTS No Results PROCEDURES No Known procedures IMMUNIZATIONS No Known Immunizations
--- OUTSIDE RECORDS SUMMARY | 2018-05-26 06:56 | XMS REPORT ---
Author Author [facility] PH[facility] Address [address] [place] [address] Care Team Providers Care Industrial Gas Service Helper Name Role Phone COCO PHAM Unavailable PROBLEMS Type Condition ICD9-CM Code [id number]-CW Code Onset Dates Condition Status SNOMED Code Problem Benign essential HTN I10 Active 0304840 Problem Allergic rhinitis J30.9 Active 82472768 Problem Other chronic pain G89.29 Active 88803903 Problem Pain in right hip M25.551 Active 91562235 Problem Tobacco abuse Z72.0 Active 72472440 Problem GERD (gastroesophageal reflux disease) K21.9 Active 863029846 Problem Pain in left hip M25.552 Active 66871578 Problem Low back pain M54.5 Active 209634106 ALLERGIES Unknown Allergies SOCIAL HISTORY No smoking Hx information available PLAN OF CARE VITAL SIGNS MEDICATIONS Unknown Medications RESULTS Name Result Date Reference Range Xray : Spine, Lumbar 2-3 views (IN HOUSE) 2016-10-28 Xray : Hip, Right 2 views (IN HOUSE) 2016-10-28 Xray : Hip, Left 2 views (IN HOUSE) 2016-10-28 PROCEDURES Procedure Date Ordered Related Diagnosis Body Site X-RAY EXAM HIP UNI 2-3 VIEWS Oct 28, 2016 X-RAY EXAM OF LOWER SPINE Oct 28, 2016 IMMUNIZATIONS No Known Immunizations
--- OUTSIDE RECORDS SUMMARY | 2018-05-26 06:57 | XMS REPORT ---
Author COCO [facility] eClinicalWorks Address Unknown Phone Unavailable Care Team Providers Care Pad Cutter Name Role Phone COCO PHAM CP Unavailable Allergies No Known Allergies Problems Problem Type Condition Code Onset Dates Condition Status Problem GERD (gastroesophageal reflux disease) K21.9 Active Problem Tobacco abuse Z72.0 Active Problem Benign essential HTN I10 Active Problem Fever, unspecified 780.60 Active Problem Influenza with other respiratory manifestations 487.1 Active Problem Allergic rhinitis J30.9 Active Problem Throat pain 784.1 Active Medications Medication Code System Code Instructions Start Date End Date Status Dosage Terazosin HCl [facility] [id number] 2 MG Orally Once a day 1 capsule Results No Known Results Summary Purpose eClinicalWorks Submission
[2018-05-26] MEDS ORDERED: ASPIRIN 81 MG CHEW (CHILDREN'S ASA) ONE (07:05)
[2018-05-26] MEDS ORDERED: NITROGLYCERIN 0.4 MG SL TABS BTL 25'S SL ONE (07:05)
[2018-05-26] MEDS ORDERED: LIDOCAINE 2% VISCOUS 15 ML UDC PO ONE (07:15)
[2018-05-26] MEDS ORDERED: ANTACID SUSP 30 ML UDC (MYLANTA) PO ONE (07:15)
[2018-05-26] MEDS ORDERED: ASPIRIN 81 MG CHEW (CHILDREN'S ASA) PO ONE (07:15)
[2018-05-26 07:17] LABS: BASOPHILS % (AUTO) 0 % (0-10); EOSINOPHILS # (AUTO) 0.1 10^3/uL (0.0-0.3); EOSINOPHILS % (AUTO) 1 % (0-10); HEMATOCRIT 44 % (40-54); HEMOGLOBIN 16.1 G/DL (13.3-17.7); LYMPHOCYTES # (AUTO) 2.8 X 10^3 (1.0-4.0); LYMPHOCYTES % (AUTO) 27 % (12-44); MEAN CORPUSCULAR HEMOGLOBIN 32 PG (25-34); MEAN CORPUSCULAR HGB CONC 37 G/DL (32-36); MEAN CORPUSCULAR VOLUME 86 FL (80-99); MEAN PLATELET VOLUME 8.7 FL (7.4-10.4); MONOCYTES # (AUTO) 0.8 X 10^3 (0.0-1.0); MONOCYTES % (AUTO) 8 % (0-12); NEUTROPHILS # (AUTO) 6.8 X 10^3 (1.8-7.8); NEUTROPHILS % (AUTO) 64 % (42-75); PLATELET COUNT 234 10^3/uL (130-400); RED BLOOD COUNT 5.07 10^6/uL (4.35-5.85); RED CELL DISTRIBUTION WIDTH 11.6 % (10.0-14.5); WHITE BLOOD COUNT 10.6 10^3/uL (4.3-11.0)
[2018-05-26 07:22] LABS: PROTHROMBIN TIME PATIENT 12.9 SEC (12.2-14.7)
[2018-05-26 07:29] LABS: ALANINE AMINOTRANSFERASE 33 U/L (0-55); ALBUMIN 4.4 GM/DL (3.2-4.5); ALKALINE PHOSPHATASE 111 U/L (40-136); BUN/CREATININE RATIO 19; CALCIUM 9.4 MG/DL (8.5-10.1); CARBON DIOXIDE 29 MMOL/L (21-32); CHLORIDE 104 MMOL/L (98-107); CREATININE SERUM 0.84 MG/DL (0.60-1.30); GFR ESTIMATED > 60; GLUCOSE 101 MG/DL (70-105); LIPASE 50 U/L (8-78); MAGNESIUM 2.2 MG/DL (1.8-2.4); POTASSIUM 3.6 MMOL/L (3.6-5.0); SODIUM 141 MMOL/L (135-145); TOTAL PROTEIN 7.2 GM/DL (6.4-8.2)
--- NOTE | 2018-05-26 07:33 | ED Chest Pain ---
General Chief Complaint: Cardiac/General Problems Stated Complaint: CP Nursing Triage Note: WOKE UP LEFT CHEST PAIN WITH RT ARM PAIN Nursing Sepsis Screen: No Definite Risk Source: patient Exam Limitations: no limitations History of Present Illness Date Seen by Provider: May 26, 2018 Time Seen by Provider: 06:56 Initial Comments Here with report of central chest pain that radiated to the right arm. Onset approximately 30 minutes prior to arrival and quite significant. 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 Does have history of hypertension and intermittently gets chest pain but states this is worse. A little worse with shortness of breath and some movement and better with rest. Reports taking his medications this morning for high blood pressure and for stomach acid problems. Timing/Duration: 1 hour Severity/Quality: moderate, severe Location: central Radiation: arms Prior CP/Workup: no prior cardiac workup Modifying Factors: improves with rest ASA po CONTROL CLERK: No NTG SL CONTROL CLERK: No Associated Symptoms: abdominal pain (epigastric); No back pain, No diaphoresis , No dizziness, No fever/chills, No nausea/vomiting, No shortness of breath, No weakness Allergies and Home Medications Allergies Coded Allergies: No Known Drug Allergies (Unverified , 05/26/18) Patient Home Medication List Home Medication List Reviewed: Yes Review of Systems Constitutional: see HPI; No chills, No fever EENTM: No Symptoms Reported Respiratory: See HPI Cardiovascular: See HPI, Chest Pain; Denies Edema Gastrointestinal: See HPI, Abdominal Pain; Denies Nausea, Denies Vomiting Genitourinary: No Symptoms Reported All Other Systems Reviewed Negative Unless Noted: Yes Past Zohhqqx-Kzcgas-Hemrvc Hx Past Med/Social Hx: Reviewed Nursing Past Med/Soc Hx Patient Social History Alcohol Use: Occasionally Uses Recreational Drug Use: No Smoking Status: Current Everyday Smoker Recent Foreign Travel: No Contact w/Someone Who Travel: No Recent Infectious Disease Expo: No Physical Abuse: No Sexual Abuse: No Mistreated: No Past Medical History Surgeries: No Respiratory: No Cardiac: Yes Hypertension Neurological: No Genitourinary: No Gastrointestinal: No Musculoskeletal: No Nursing Suicide Risk Score: 0 Family Medical History Reviewed Nursing Family Hx Heart Disease, Hypertension Physical Exam Vital Signs Vital Signs - First Documented 05/26/18 07:07 Temp 98.0 Pulse 57 Resp 20 B/P (MAP) 168/108 (128) Pulse Ox 99 O2 Delivery Room Air Capillary Refill : Less Than 3 Seconds Height, Weight, BMI Height: 5'11.00" Weight: 210lbs. oz. 95.062265ep; BMI Method:Stated General Appearance: WD/WN, Mild Distress HEENT: PERRL/EOMI, Pharynx Normal Neck: Non Tender, Supple Respiratory: Lungs Clear, Normal Breath Sounds Cardiovascular: Regular Rate, Rhythm, No Murmur Gastrointestinal: Non Tender, Soft Extremity: Normal Range of Motion, Non Tender Neurologic/Psychiatric: Alert, Oriented x3 Skin: Normal Color, Warm/Dry Progress/Results/Core Measures Results/Orders Lab Results Laboratory Tests Test 05/26/18 06:58 05/26/18 09:39 Range/Units White Blood Count 10.6 4.3-11.0 10^3/uL Red Blood Count 5.07 4.35-5.85 10^6/uL Hemoglobin 16.1 13.3-17.7 G/DL Hematocrit 44 40-54 % Mean Corpuscular Volume 86 80-99 FL Mean Corpuscular Hemoglobin 32 25-34 PG Mean Corpuscular Hemoglobin Concent 37 H 32-36 G/DL Red Cell Distribution Width 11.6 10.0-14.5 % Platelet Count 234 130-400 10^3/uL Mean Platelet Volume 8.7 7.4-10.4 FL Neutrophils (%) (Auto) 64 42-75 % Lymphocytes (%) (Auto) 27 12-44 % Monocytes (%) (Auto) 8 0-12 % Eosinophils (%) (Auto) 1 0-10 % Basophils (%) (Auto) 0 0-10 % Neutrophils # (Auto) 6.8 1.8-7.8 X 10^3 Lymphocytes # (Auto) 2.8 1.0-4.0 X 10^3 Monocytes # (Auto) 0.8 0.0-1.0 X 10^3 Eosinophils # (Auto) 0.1 0.0-0.3 10^3/uL Basophils # (Auto) 0.0 0.0-0.1 10^3/uL Prothrombin Time 12.9 12.2-14.7 SEC INR Comment 1.0 0.8-1.4 Activated Partial Thromboplast Time 28 24-35 SEC D-Dimer <= 0.27 0.00-0.49 UG/ML Sodium Level 141 135-145 MMOL/L Potassium Level 3.6 3.6-5.0 MMOL/L Chloride Level 104 98-107 MMOL/L Carbon Dioxide Level 29 21-32 MMOL/L Anion Gap 8 5-14 MMOL/L Blood Urea Nitrogen 16 7-18 MG/DL Creatinine 0.84 0.60-1.30 MG/DL Estimat Glomerular Filtration Rate > 60 BUN/Creatinine Ratio 19 Glucose Level 101 70-105 MG/DL Calcium Level 9.4 8.5-10.1 MG/DL Corrected Calcium 9.1 8.5-10.1 MG/DL Magnesium Level 2.2 1.8-2.4 MG/DL Total Bilirubin 1.0 0.1-1.0 MG/DL Aspartate Amino Transf (AST/SGOT) 26 5-34 U/L Alanine Aminotransferase (ALT/SGPT) 33 0-55 U/L Alkaline Phosphatase 111 40-136 U/L Myoglobin 45.6 37.3 10.0-92.0 NG/ML Troponin I < 0.30 < 0.30 <0.30 NG/ML Total Protein 7.2 6.4-8.2 GM/DL Albumin 4.4 3.2-4.5 GM/DL Lipase 50 8-78 U/L My Orders Orders - LINO ZARATE MD Cbc With Automated Diff (05/26/18 07:05) Magnesium (05/26/18 07:05) Chest 1 View, Ap/Pa Only (05/26/18 07:05) Ekg Tracing (05/26/18 07:05) Cardiac Profile 1 (05/26/18 07:05) Comprehensive Metabolic Panel (05/26/18 07:05) Myoglobin Serum (05/26/18 07:05) Protime With Inr (05/26/18 07:05) Partial Thromboplastin Time (05/26/18 07:05) O2 (05/26/18 07:05) Monitor-Rhythm Ecg Trace Only (05/26/18 07:05) Lipid Panel (05/27/18 06:00) Aspirin Chewable Tablet (Baby Aspirin Ch (05/26/18 07:15) Saline Lock/Iv-Start (05/26/18 07:05) Lipase (05/26/18 07:05) Fibrin Degradation Products (05/26/18 07:05) Lidocaine 2% Viscous 15 Ml (Xylocaine Vi (05/26/18 07:15) Antacid Suspension (Mylanta Suspension (05/26/18 07:15) Nitroglycerin 0.4 Mg Btl 25's (Nitrostat (05/26/18 07:05) Aspirin Chewable Tablet (Baby Aspirin Ch (05/26/18 07:05) Troponin I (05/26/18 09:43) Myoglobin Serum (05/26/18 09:43) Ekg Tracing (05/26/18 09:43) Medications Given in ED Current Medications Medications Dose Ordered Sig/Jean Route Start Time Stop Time Status Last Admin Dose Admin Al Hydrox/Mg Hydrox/Simethicone 30 ml ONCE ONCE PO 05/26/18 07:15 05/26/18 07:16 DC 05/26/18 07:20 30 ML Aspirin 324 mg ONCE ONCE PO 05/26/18 07:15 05/26/18 07:16 DC 05/26/18 07:11 324 MG Lidocaine HCl 15 ml ONCE ONCE PO 05/26/18 07:15 05/26/18 07:16 DC 05/26/18 07:20 15 ML Nitroglycerin 0.4 mg STK-MED ONCE SL 05/26/18 07:05 05/26/18 07:09 DC 05/26/18 07:13 0.4 MG Vital Signs/I&O 05/26/18 07:07 Temp 98.0 Pulse 57 Resp 20 B/P (MAP) 168/108 (128) Pulse Ox 99 O2 Delivery Room Air Blood Pressure Mean: 128 Progress Progress Note : Progress Note Seen and evaluated. IV, labs, EKG and chest x-ray ordered. ASA 324 mg by mouth ordered. GI cocktail ordered. Monitor patient. Patient did receive nitroglycerin by mouth 3 and all symptoms resolved. We will repeat labs and EKG and 2 hours and evaluated for changes. 1115: Repeat labs and EKG complete. Troponin and myoglobin remained negative but EKG does show some ST depression in the inferior leads especially in lead 3. This is concerning. I did discuss the case with Dr. Courtney and he'll see the patient in the ER. 1130: Patient has been seen by Dr. Courtney and he would like to admit him overnight with stress test tomorrow on echocardiogram today. We will get him admitted to the telemetry floor. This was discussed with patient who agrees. Admit, observation status. Initial ECG Impression Date: May 26, 2018 Initial ECG Impression Time: 06:56 Initial ECG Rate: 57 Initial ECG Rhythm: Normal Sinus Initial ECG Comparisson: No Previous ECG Available Comment Sinus rhythm with normal axis. No evidence of ST elevation [place]. No previous available for comparison. Interpreted by me. EKG : EKG Time: 09:39 Rate: 48 Rhythm: S.Tony Comment Sinus rhythm with ST depression noted in the inferior leads especially in V3 although is mild. Discussed with elastic attacher chainstitch. Represents change from one done earlier. Departure Communication (Admissions) Time/Spoke to Admitting Phy: 11:18 Impression Primary Impression: Malignant hypertension Additional Impression: Chest pain Qualified Codes: R07.9 - Chest pain, unspecified Disposition: 09 ADMITTED INPATIENT Condition: Stable Admissions Decision to Admit Reason: Admit from ER (General) Decision to Admit/Date: May 26, 2018 Time/Decision to Admit Time: 11:30 Departure-Patient Inst. Referrals: UNKNOWN (PCP/Family) Primary Care Physician LINO ZARATE MD May 26, 2018 07:33
[2018-05-26 07:36] LABS: MYOGLOBIN SERUM 45.6 NG/ML (10.0-92.0)
--- NOTE | 2018-05-26 07:42 | Diagnostic Imaging Report ---
EXAMINATION: Chest radiograph, portable AP view. DATE: May 26, 2018 at 0733 hours. INDICATION: 37-year-old male, chest pain. COMPARISON: None. FINDINGS: Heart size and mediastinal contours are unremarkable. There is no identified pneumothorax. There is no large pleural effusion. There is no identified focal airspace consolidation. IMPRESSION: No identified acute cardiopulmonary abnormality. Dictated by: Dictated on workstation # [id number]
[2018-05-26 10:10] LABS: MYOGLOBIN SERUM 37.3 NG/ML (10.0-92.0)
--- NOTE | 2018-05-26 11:42 | Consultation-Cardiology ---
HPI-Cardiology Cardiology Consultation Date of Consultation 05/26/18 Date of Admission Time Seen by Provider: 11:41 Indication: Chest pain HPI Patient is a very pleasant 37 y/o male with history of HTN, tobaccoism. Presented to the ER this morning with complaints of CP. 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 Describes the pain as a squeezing sensation. Reports he has had intermittent CP over the past several months, but not this intense. Denies any active CP and this time. Reported associated dyspnea and dizziness at the time of his CP. Denies any syncope or peripheral edema. This is a 37 years old gentleman with history of hypertension tobaccoism, presented to the emergency room with recurrent chest pain. Has been having occasional episode of chest pain and tightness. Shortness of breath, has been having episodes of palpitation feeling heart rate tracing 2/180 lasting for few minutes and resolving spontaneously. Came into the emergency room for chest pain and hypertension. Currently chest pain is better. Blood pressure is still elevated. Home Medications & Allergies Allergies: Coded Allergies: No Known Drug Allergies (Unverified , 05/26/18) Home Medication List Reviewed: Yes [id number] Hx Patient Social History Employed/Student: employed Alcohol Use: Occasionally Uses Recreational Drug Use: No Smoking Status: Current Everyday Smoker Recent Foreign Travel: No Recent Infectious Disease Expo: No Past Medical History HTN, Tobaccoism Family Medical History Significant Family History: Heart Disease, Hypertension Constitutional: No chills, No diaphoresis, No weakness EENTM: No hearing loss, No blurred vision, No double vision Respiratory: No cough; dyspnea on exertion, short of breath; No wheezing Cardiovascular: chest pain; No edema, No palpitations, No syncope, No vascular heart diseas Gastrointestinal: No abdominal pain, No diarrhea Genitourinary: No frequency, No hematuria Musculoskeletal: No back pain, No joint pain Skin: No lesions, No rash Psychiatric/Neurological: Denies Anxiety, Denies Depressed Reviewed Test Results Reviewed Test Results Lab Laboratory Tests 05/26/18 06:58: White Blood Count 10.6, Red Blood Count 5.07, Hemoglobin 16.1, Hematocrit 44, Mean Corpuscular Volume 86, Mean Corpuscular Hemoglobin 32, Mean Corpuscular Hemoglobin Concent 37H, Red Cell Distribution Width 11.6, Platelet Count 234, Mean Platelet Volume 8.7, Neutrophils (%) (Auto) 64, Lymphocytes (%) (Auto) 27, Monocytes (%) (Auto) 8, Eosinophils (%) (Auto) 1, Basophils (%) (Auto) 0, Neutrophils # (Auto) 6.8, Lymphocytes # (Auto) 2.8, Monocytes # (Auto) 0.8, Eosinophils # (Auto) 0.1, Basophils # (Auto) 0.0, Prothrombin Time 12.9, INR Comment 1.0, Activated Partial Thromboplast Time 28, D-Dimer <= 0.27, Sodium Level 141, Potassium Level 3.6, Chloride Level 104, Carbon Dioxide Level 29, Anion Gap 8, Blood Urea Nitrogen 16, Creatinine 0.84, Estimat Glomerular Filtration Rate > 60, BUN/Creatinine Ratio 19, Glucose Level 101, Calcium Level 9.4, Corrected Calcium 9.1, Magnesium Level 2.2, Total Bilirubin 1.0, Aspartate Amino Transf (AST/SGOT) 26, Alanine Aminotransferase (ALT/SGPT) 33, Alkaline Phosphatase 111, Myoglobin 45.6, Troponin I < 0.30, Total Protein 7.2, Albumin 4.4, Lipase 50 05/26/18 09:39: Myoglobin 37.3, Troponin I < 0.30 ECG Impression ECG Initial ECG Rhythm: S.Tony Initial ECG Intervals Sinus bradycardia with mild ST depression in inferior leads Physical Exam Vital Signs Vital Signs - First Documented 05/26/18 07:07 Temp 98.0 Pulse 57 Resp 20 B/P (MAP) 168/108 (128) Pulse Ox 99 O2 Delivery Room Air Capillary Refill : Less Than 3 Seconds Height, Weight, BMI Height: 5'11.00" Weight: 210lbs. oz. 95.438974xl; BMI Method:Stated General Appearance: No Apparent Distress, WD/WN HEENT: PERRL/EOMI, Normal ENT Inspection Neck: Full Range of Motion, Normal Inspection, Non Tender, Supple Respiratory: Chest Non Tender, Lungs Clear, Normal Breath Sounds, No Accessory Muscle Use, No Respiratory Distress Cardiovascular: No Edema, No Gallop, No JVD, No Murmur, Normal Peripheral Pulses, Bradycardia Gastrointestinal: No Pulsatile Mass, Non Tender, Soft Rectal: Deferred Back: No CVA Tenderness Extremity: Non Tender, No Calf Tenderness Neurologic/Psychiatric: Alert, Oriented x3, executive housekeeper II-XII Norm as Tested Skin: Normal Color, Warm/Dry Lymphatic: No Adenopathy A/P-Cardiology Admission Diagnosis Chest pain HTN Bradycardia Tobaccoism. Assessment/Plan Chest pain, nonspecific etiology. EKG reveals sinus bradycardia with minimal ST depression in inferior leads, non diagnostic. Cardiac enzymes are negative so far. Patient to be admitted for CP observation. Planning for stress test in the morning. 2D Echo later today. HTN- poorly controlled. On multiple medications as outpatient. I am changing atenolol to Coreg and increasing the dose to 6.25 mg twice daily, continue on losartan Bradycardia- asymptomatic. Likely secondary to use of atenolol. Continue to monitor. Tobaccoism- educated on the importance of smoking cessation. Thank you for allowing us to participate in the management of Mr. Francis. This is Dandre Polanco PA-C, as a scribe for Dr. Courtney. Patient was seen and evaluated with Dandre, I interviewed the patient and perform physical exam and discussed the management plan with Dandre, agree with the current scribe noted. He is a 37 years old gentleman with history of hypertension difficult to control, family history of hypertension at a young age. Came in with acute chest pain. Had minimal EKG changes with T-wave inversion in lead 3 and aVF. He has history of tobaccoism. On examination lungs were clear to auscultation bilaterally, heart is regular rate and rhythm, we discussed diet control and limiting salt intake. In addition I'm changing atenolol to Coreg, continue on losartan and monitor blood pressure planning to evaluate stress test in the morning assuming his cardiac enzymes continue to be negative. I reviewed the note and agree with the current scribe note I made few modification using Italic Font Clinical Quality Measures AMI/AHF: ASA po Prior to arrival: No DANDRE YBARRA May 26, 2018 11:42 ROXANA COURTNEY MD May 26, 2018 14:07
[2018-05-26] MEDS ORDERED: NS IV 1000 ML 1,000 ML IV SCH ×2 (13:30→14:22)
[2018-05-26] MEDS ORDERED: CATHETER FLUSH 10 ML SYR IV PRN (13:30)
[2018-05-26 13:50] VITALS: BP 150/76
[2018-05-26] MEDS ORDERED: TERA2CAP4 PO (13:59)
[2018-05-26] MEDS ORDERED: LOSA100T28 PO (13:59)
[2018-05-26] MEDS ORDERED: IBUP-30 PO (13:59)
[2018-05-26] MEDS ORDERED: OMEP20CA12 PO (13:59)
[2018-05-26] MEDS ORDERED: ATEN25TA PO (13:59)
[2018-05-26] MEDS ORDERED: MELA5TAB14 PO (13:59)
[2018-05-26] MEDS ORDERED: MELATONIN 2.5 MG PO PRN (14:15)
[2018-05-26] MEDS ORDERED: MELATONIN 3 MG TABLET PO PRN (14:15)
[2018-05-26] MEDS ORDERED: PATIENT MAY USE OWN MEDS, ALL PO SCH (14:30)
[2018-05-26 15:50] VITALS: BP 130/78
[2018-05-26 19:13] VITALS: BP 150/93
[2018-05-26] MEDS: CARVEDILOL 6.25 MG (COREG) TAB PO SCH (20:30)
[2018-05-26] MEDS ORDERED: TERAZOSIN 2 MG (HYTRIN) CAP PO SCH (21:00)
[2018-05-27 00:54] VITALS: BP 118/60
[2018-05-27 04:23] VITALS: BP 140/80
[2018-05-27 06:42] LABS: CHOLESTEROL 146 MG/DL (< 200); HDL CHOLESTEROL 34 MG/DL (40-60); TRIGLYCERIDES 80 MG/DL (<150); VLDL CHOLESTEROL 16 MG/DL (5-40)
[2018-05-27] MEDS ORDERED: PANTOPRAZOLE 20 MG TABLET (PROTONIX) PO SCH (07:00)
[2018-05-27] MEDS ORDERED: REGADENOSON 0.4 MG/5 ML SYR (LEXISCAN) IV ONE ×2 (07:36→08:00)
[2018-05-27 07:42] VITALS: BP 115/91
[2018-05-27 07:48] VITALS: BP 139/86
[2018-05-27] MEDS ORDERED: OMEPRAZOLE 20 MG (PriLOSEC) CAP NON-FORMULARY PO SCH (09:00)
[2018-05-27] MEDS ORDERED: LOSARTAN 100 MG (COZAAR) TABLET PO SCH (09:00)
[2018-05-27] MEDS: CARVEDILOL 6.25 MG (COREG) TAB PO SCH (10:05)
[2018-05-27 12:00] VITALS: BP 119/56
[2018-05-27] MEDS ORDERED: CARV6.252 PO (12:36)
--- NOTE | 2018-05-27 12:36 | Cardiology Progress Note ---
Subjective Date Seen by Provider: May 27, 2018 Time Seen by Provider: 12:34 Subjective/Events-last exam Patient is sitting in bed, feeling better. Denied any further episodes of chest pain. Blood pressure is better controlled. No palpitation, we had a long discussion about diet control, meanwhile I instructed him to continue on his current medication monitor his blood pressure Review of Systems General: No Chills, No Night Sweats, No Fatigue, No Malaise, No Appetite, No Other HEENT: No Head Aches, No Visual Changes, No Eye Pain, No Ear Pain, No Dysphasia , No Sinus Congestion, No Post Nasal Drip, No Sore Throat, No Other Pulmonary: No Dyspnea, No Cough, No Pleuritic Chest Pain, No Other Cardiovascular: No: Chest Pain, Palpitations, Orthopnea, Paroxysmal Noc. Dyspnea, Edema, Lt Headedness, Other Objective-Cardiology Exam Last Set of Vital Signs Vital Signs 05/27/18 05/27/18 05/27/18 04:23 07:48 09:15 Temp 97.6 Pulse 84 Resp 17 B/P (MAP) 139/86 (103) Pulse Ox 99 O2 Delivery Room Air Capillary Refill : Less Than 3 Seconds I&O Intake and Output 05/27/18 00:00 Intake Total 560 ml Balance 560 ml Intake Oral 560 ml # Voids 2 Daily Weight Change No General: Alert, Oriented X3, Cooperative HEENT: Atraumatic, PERRLA Neck: Supple, No JVD, No Thyromegaly Lungs: Clear to Auscultation, Normal Air Movement Heart: Regular Rate, Normal S1, Normal S2, No Murmurs Abdomen: Normal Bowel Sounds, Soft, No Tenderness, No Hepatosplenomegaly, No Masses Extremities: No Clubbing, No Cyanosis, No Edema, Normal Pulses, No Tenderness/ Swelling Skin: No Rashes, No Breakdown, No Significant Lesion Neuro: Normal Gait, Normal Speech, Strength at 5/5 X4 Ext, Normal Tone, Sensation Intact Psych/Mental Status: Mental Status NL, Mood NL Results Lab Laboratory Tests Test 05/27/18 05:03 Range/Units Troponin I < 0.30 <0.30 NG/ML Triglycerides Level 80 <150 MG/DL Cholesterol Level 146 < 200 MG/DL LDL Cholesterol Direct 103 1-129 MG/DL VLDL Cholesterol 16 5-40 MG/DL HDL Cholesterol 34 L 40-60 MG/DL A/P-Cardiology Admission Diagnosis Chest pain HTN Bradycardia Tobaccoism. Assessment/Plan Chest pain, nonspecific etiology. EKG reveals sinus bradycardia with minimal ST depression in inferior leads, non diagnostic, cardiac enzymes were negative, EKG showed no acute changes. Stress test showed typical male pattern with no significant ischemia or infarction with normal LV function. Planning to discharge home today. Hypertension, better controlled today. Continue to monitor blood pressure as an outpatient, educated in length on limiting salt intake and diet control. Bradycardia- asymptomatic. Likely secondary to use of atenolol, monitor blood pressure Tobaccoism- educated on the importance of smoking cessation. Clinical Quality Measures AMI/AHF: ASA po Prior to arrival: No DVT/VTE Risk/Contraindication: Risk Factor Score Per Nursin RFS Level Per Nursing on Admit: 1=Low/No VTE PPX ROXANA DEVLIN MD May 27, 2018 12:36
--- NOTE | 2018-05-27 14:40 | STRESS TEST ---
DATE OF SERVICE: 05/27/2018 LEXISCAN MYOVIEW STRESS TEST REPORT INDICATION: Chest pain. FINDINGS: Baseline heart rate is 57. Baseline blood pressure 115/91. Baseline EKG sinus rhythm with no ischemic changes. In summary, the patient was injected with 10.0 mCi of technetium-99 Myoview and the resting images were obtained then received 0.4 mg of Lexiscan followed by 32.2 mCi of technetium-99 Myoview. Throughout the test, there were no EKG changes. The resting and stress images were reviewed and compared in the short axis, horizontal long axis, and vertical long axis views. Review of the images showed diaphragmatic attenuation with typical male pattern. No significant ischemia or infarction. SSS is 2, SDS 1, TID value 1.06. On the gated images, the left ventricle appeared to be normal size with normal contractility. Calculated ejection fraction of 51%. CONCLUSION: 1. The patient tolerated Lexiscan well. 2. Diaphragmatic attenuation with typical male pattern with no significant ischemia or infarction on SPECT images. 3. Normal left ventricular size with normal contractility. Calculated ejection fraction of 51%. Job ID: [id number] DocumentID: [id number] Dictated Date: 05/27/2018 11:48:37 Eligibility Worker Date: 05/27/2018 14:40:08 Dictated By: ROXANA DEVLIN MD
== END 2018-05-27 12:33 | disposition home or self-care (01) ==
LOC: ER 06:51 → 4TH 11:35 → UNDOADMOB 11:35 → 4TH 13:15 → UNDODISOB 05-27 13:30
PROVIDERS: ADMIT Internal Medicine Cardiovascular Disease; ATTEND Internal Medicine Cardiovascular Disease
DX: R07.89 Other chest pain (principal); I10 Essential (primary) hypertension; R00.1 Bradycardia, unspecified; I08.3 Combined rheumatic disorders of mitral, aortic and tricuspid valves; F17.210 Nicotine dependence, cigarettes, uncomplicated
CPT/HCPCS: 36415; 71045; 78452; 80053; 80061; 83690; 83735; 83874; 84484; 85025; 85379; 85610; 85730; 93005; 93017; 93041; 93306; G0378